=== PATIENT | female | born 1960 | race Two or more races ===

== ENCOUNTER 2017-03-12 20:31 | Emergency (ER) | payer BC ==
[~2017-03-12] VITALS: Ht 162.6 cm; Wt 70.4 kg
[2017-03-12] MEDS ORDERED: ADACEL/BOOSTRIX VACCINE (DIPHTH/PERTUSS/ACELL/TETANUS)0.5ML SYR (90715) IM ONE (22:00)
[2017-03-12 22:23] VITALS: BP 128/71
== END 2017-03-12 22:25 | disposition home or self-care (01) ==
LOC: M ED 20:31
DX: S61.012A Laceration without foreign body of left thumb without damage to nail, initial encounter (principal); W26.0XXA Contact with knife, initial encounter; Y92.018 Other place in single-family (private) house as the place of occurrence of the external cause; Y93.G1 Activity, food preparation and clean up; Y99.8 Other external cause status